=== PATIENT | male | born 1935 | race Caucasian/White ===

== ENCOUNTER → 2024-12-07 15:53 | Outpatient (REF) | payer MEDICARE, BC, SELFPAY | LOC: REG 15:53 | PROVIDERS: ATTENDING PHYSICIAN Internal Medicine Cardiovascular Disease; FAMILY PHYSICIAN Family Medicine | DX: I48.0 Paroxysmal atrial fibrillation (principal); I35.0 Nonrheumatic aortic (valve) stenosis; Z79.01 Long term (current) use of anticoagulants; Z86.73 Personal history of transient ischemic attack (TIA), and cerebral infarction without residual deficits; I10 Essential (primary) hypertension | CPT/HCPCS: 93306 ==